=== PATIENT | male | born 1990 | race Caucasian/White ===

== ENCOUNTER 2019-04-01 11:05 | Inpatient (IN) | payer OTHER ==
[2019-04-01 11:32] VITALS: BMI 19.4
--- NOTE | 2019-04-01 13:17 | HP ---
COWS - Scale Resting Pulse: 0= [place] 80 or Below Sweatin= No chills or Flushing Restless Observation: 1= Difficult to Sit Still Pupil Size: 0= Normal to Room Light Bone or Joint Aches: 2= Severe Diffuse Aches Runny Nose/ Eye Tearin= Nasal Congestion GI Upset > 30mins: 0= None Tremor Observation: 0= None Yawning Observation: 0= None Anxiety or Irritability: 2=Irritable/Anxious Goose Flesh Skin: 0=Smooth Skin COWS Score: 6 CIWA Score - Admission Criteria OASAS Guidelines: Admission for Medically Managed Detox: Requires at least one of the followin. CIWA greater than 12 2. Seizures within the past 24 hours 3. Delirium tremens within the past 24 hours 4. Hallucinations within the past 24 hours 5. Acute intervention needed for co occurring medical disorder 6. Acute intervention needed for co occurring psychiatric disorder 7. Severe withdrawal that cannot be handled at a lower level of care (continued vomiting, continued diarrhea, abnormal vital signs) requiring intravenous medication and/or fluids 8. Admission ROS [facility] - HPI Chief Complaint: referred by [facility] Allergies/Adverse Reactions: Allergies Allergy/AdvReac Type Severity Reaction Status Date / Time No Known Allergies Allergy Verified 04/01/19 11:26 History of Present Illness: pt here requesting detox from heroin use , reports 10-20 bags heroin/ day IV , needles from exchange , denies sharing , denies abscess , + OD x 3 most recently 1 mo ago , Narcan by EMS , taken to [facility] . First age of use 22 IVD heroin , latest use 8 am today . cocaine - 1 bag/day iv since age 22 denies oxy \ fentanyl - admits to use denies other illicits or etoh tobacco : denies PMHX : denies PSHX : denies Psych : denies SHx : homeless , unemployed Exam Limitations: No Limitations - Ebola screening Have you traveled outside of the country in the last 21 days: No Have you had contact with anyone from an Ebola affected area: No Do you have a fever: No - Review of Systems Constitutional: No Symptoms Reported EENT: reports: No Symptoms Reported Respiratory: reports: No Symptoms reported Cardiac: reports: No Symptoms Reported GI: reports: No Symptoms Reported : reports: No Symptoms Reported Musculoskeletal: reports: See HPI Integumentary: reports: See HPI Neuro: reports: No Symptoms reported Endocrine: reports: No Symptoms Reported Psychiatric: reports: Orientated x3, Anxious Patient History - Smoking Cessation Smoking history: Never smoked - Substances abused Heroin Substance route: Injection Frequency: Daily Amount used: 10-20 bags Age of first use: 22 Date of last use: 04/01/19 Admission Physical Exam BHS - Vital Signs Vital Signs: Vital Signs - 24 hr 04/01/19 11:27 Temperature 98.6 F Pulse Rate 76 Respiratory 16 Rate Blood Pressure 111/67 - Physical General Appearance: Yes: Mild Distress, Anxious HEENTM: Yes: EOMI, Hearing grossly Normal, Normocephalic, Normal Voice Respiratory: Yes: Chest Non-Tender, Lungs Clear, Normal Breath Sounds, No Respiratory Distress, No Accessory Muscle Use Neck: Yes: No masses,lesions,Nodules, Trachea in good position Cardiology: Yes: Regular Rhythm, Regular Rate, S1, S2 Abdominal: Yes: Normal Bowel Sounds, Non Tender, Soft Back: Yes: Normal Inspection Musculoskeletal: Yes: full range of Motion, Gait Steady Extremities: Yes: Normal Range of Motion, Non-Tender Neurological: Yes: Fully Oriented, Alert, Motor Strength 5/5, Normal Mood/Affect Integumentary: Yes: Warm, Track [place] - Diagnostic (1) Opioid use with intoxication Current Visit: Yes Status: Acute (2) Cocaine use disorder Current Visit: Yes Status: Chronic Breathalyzer - Breathalyzer Breathalyzer: 0 Urine Drug Screen - Test Device Lot number: [id number] Expiration date: 11/24/20 - Control Is test valid?: Yes - Results Drug screen NEGATIVE: No Urine drug screen results: DAMASO-Cocaine, FEN-Fentanyl, MOP-Opiates, OXY-Oxycodone Inpatient Rehab Admission - Rehab Decision to Admit Inpatient rehab admission?: No
[2019-04-01] MEDS ORDERED: MAG HYDROX/AL HYDROX/SIMETH 30 ML UNIT-DOSE CUP PO PRN (13:25)
[2019-04-01] MEDS ORDERED: METHOCARBAMOL 500 MG TABLET PO PRN (13:25)
[2019-04-01] MEDS ORDERED: MAGNESIUM HYDROX 2400MG/30ML ORAL SUSPENSION 30 ML CUP PO PRN (13:25)
[2019-04-01] MEDS ORDERED: BISMUTH SUBSALICYLATE 262 MG/15 ML BTL PO PRN (13:25)
[2019-04-01] MEDS ORDERED: ACETAMINOPHEN 325 MG TABLET (FP) PO PRN ×2 (13:25)
[2019-04-01] MEDS ORDERED: MAGNESIUM CITRATE 300 ML BOTTLE PO PRN (13:25)
[2019-04-01] MEDS ORDERED: MENTHOL/PHENOL 1 EACH UD MM PRN (13:25)
[2019-04-01] MEDS ORDERED: IBUPROFEN 400 MG TABLET (FP) PO PRN (13:25)
[2019-04-01] MEDS ORDERED: cloNIDine HCL 0.1 MG TABLET PO PRN (13:28)
--- NOTE | 2019-04-01 15:01 | EKG ---
Test Reason : Blood Pressure : / mmHG Vent. Rate : 073 BPM Atrial Rate : 073 BPM P-R Int : 142 ms QRS Dur : 092 ms QT Int : 394 ms P-R-T Axes : 043 082 068 degrees QTc Int : 434 ms NORMAL SINUS RHYTHM NORMAL ECG NO PREVIOUS ECGS AVAILABLE Confirmed by MD Jose, Garland ([id number]) on 04/01/2019 3:01:14 PM Referred By: Confirmed By:Garland Garcia MD
[2019-04-01] MEDS: hydrOXYzine PAMOATE 25 MG CAPSULE (FP) PO PRN (15:10)
[2019-04-01] MEDS ORDERED: METHADONE HCL 10 MG TABLET (FOR DETOX USE ONLY) PO ONE (21:00)
[2019-04-01] MEDS: THIAMINE HCL 100 MG TABLET (FP) PO SCH (21:42)
[2019-04-02] MEDS ORDERED: METHADONE HCL 5 MG TABLET (FOR DETOX USE ONLY) ONE (08:54)
[2019-04-02] MEDS ORDERED: METHADONE HCL 10 MG TABLET (FOR DETOX USE ONLY) ONE (08:54)
[2019-04-02] MEDS ORDERED: METHADONE (DETOX) 20 MG, METHADONE (DETOX) 5 MG PO ONE (10:00)
[2019-04-02] MEDS: PRENATAL VITAMINS W/ FOLIC ACID TABLET (FP) PO SCH (10:12)
[2019-04-02 10:48] LABS: ALBUMIN 3.3 g/dl (3.4-5.0); BILIRUBIN,TOTAL 0.4 mg/dL (0.2-1); BLOOD UREA NITROGEN 8.4 mg/dL (7-18); CALCIUM 8.7 mg/dL (8.5-10.1); POTASSIUM 3.9 mmol/L (3.5-5.1); TOT PROT 7.7 g/dl (6.4-8.2)
--- NOTE | 2019-04-02 10:51 | PN ---
BHS COWS - Scale Resting Pulse: 0= [place] 80 or Below Sweatin= Chills/Flushing Restless Observation: 0= Sits Still Pupil Size: 1= Pupils >than Normal Bone or Joint Aches: 1= Mild Discomfort Runny Nose/ Eye Tearin= None GI Upset > 30mins: 1= Stomach Cramp Tremor Observation of Outstretched Hands: 1= Tremor [place], Not Seen Yawning Observation: 0= None Anxiety or Irritability: 2=Irritable/Anxious Goose Flesh Skin: 3=Piloerection COWS Score: 10 BHS Progress Note (SOAP) Subjective: 28 years old male admitted on 04/01/19 for opiate withdrawal sx management treated with methadone detox regimen resting on bed feeling tired prefers to stay in bed today Objective: 04/02/19 10:50 Vital Signs Temperature 96 F L 04/02/19 09:02 Pulse Rate 66 04/02/19 09:02 Respiratory Rate 20 04/02/19 09:02 Blood Pressure 96/58 L 04/02/19 09:02 O2 Sat by Pulse Oximetry (%) Laboratory Last Values Sodium 142 mmol/L (136-145) 04/02/19 08:15 Potassium 3.9 mmol/L (3.5-5.1) 04/02/19 08:15 Chloride 108 mmol/L (98-107) H 04/02/19 08:15 Carbon Dioxide 30 mmol/L (21-32) 04/02/19 08:15 Anion Gap 4 MMOL/L (8-16) L 04/02/19 08:15 BUN 8.4 mg/dL (7-18) 04/02/19 08:15 Creatinine 1.0 mg/dL (0.55-1.3) 04/02/19 08:15 Est GFR (CKD-EPI)AfAm 119.86 04/02/19 08:15 Est GFR (CKD-EPI)NonAf 103.41 04/02/19 08:15 Random Glucose 81 mg/dL (74-106) 04/02/19 08:15 Calcium 8.7 mg/dL (8.5-10.1) 04/02/19 08:15 Total Bilirubin 0.4 mg/dL (0.2-1) 04/02/19 08:15 AST 16 U/L (15-37) 04/02/19 08:15 ALT 18 U/L (13-61) 04/02/19 08:15 Alkaline Phosphatase 63 U/L (45-117) 04/02/19 08:15 Total Protein 7.7 g/dl (6.4-8.2) 04/02/19 08:15 Albumin 3.3 g/dl (3.4-5.0) L 04/02/19 08:15 lab noted Assessment: 04/02/19 10:51 opiate withdrawal sx Plan: continue methadone detox regimen
[2019-04-02 10:53] LABS: HEMATOCRIT 36.9 % (35.4-49); HEMOGLOBIN 12.1 GM/dL (11.7-16.9); MCH 29.6 pg (25.7-33.7); MCHC 32.9 g/dl (32.0-35.9); MEAN CELL VOLUME 89.9 fl (80-96); MEAN PLT VOLUME 8.6 fl (7.5-11.1); PLATELET COUNT 263 K/MM3 (134-434); RDW 13.9 % (11.9-15.9); WHITE BLOOD COUNT 5.8 K/mm3 (4.0-10.0)
[2019-04-02] MEDS: hydrOXYzine PAMOATE 25 MG CAPSULE (FP) PO PRN (22:11)
[2019-04-02] MEDS: THIAMINE HCL 100 MG TABLET (FP) PO SCH (22:11)
[2019-04-03] MEDS ORDERED: METHADONE HCL 10 MG TABLET (FOR DETOX USE ONLY) PO ONE (10:00)
[2019-04-03] MEDS: PRENATAL VITAMINS W/ FOLIC ACID TABLET (FP) PO SCH (10:03)
--- NOTE | 2019-04-03 11:32 | PN ---
BHS COWS - Scale Resting Pulse: 1= [place] 81-100 Sweatin= Chills/Flushing Restless Observation: 0= Sits Still Pupil Size: 1= Pupils >than Normal Bone or Joint Aches: 1= Mild Discomfort Runny Nose/ Eye Tearin= Nasal Congestion GI Upset > 30mins: 0= None Tremor Observation of Outstretched Hands: 1= Tremor [place], Not Seen Yawning Observation: 1= 1-2x During Session Anxiety or Irritability: 2=Irritable/Anxious Goose Flesh Skin: 0=Smooth Skin COWS Score: 9 BHS Progress Note (SOAP) Subjective: 28 years old male admitted on 04/01/19 for opiate withdrawal sx management treated with methadone detox regimen discuss medication assisted treatment program citrus picker narcan from pharmacy Objective: 04/03/19 11:34 Vital Signs Temperature 96 F L 04/03/19 09:05 Pulse Rate 87 04/03/19 09:05 Respiratory Rate 20 04/03/19 09:05 Blood Pressure 118/77 04/03/19 09:05 O2 Sat by Pulse Oximetry (%) Laboratory Last Values WBC 5.8 K/mm3 (4.0-10.0) 04/02/19 08:15 RBC 4.10 M/mm3 (4.00-5.60) 04/02/19 08:15 Hgb 12.1 GM/dL (11.7-16.9) 04/02/19 08:15 Hct 36.9 % (35.4-49) 04/02/19 08:15 MCV 89.9 fl (80-96) 04/02/19 08:15 MCH 29.6 pg (25.7-33.7) 04/02/19 08:15 MCHC 32.9 g/dl (32.0-35.9) 04/02/19 08:15 RDW 13.9 % (11.9-15.9) 04/02/19 08:15 Plt Count 263 K/MM3 (134-434) 04/02/19 08:15 MPV 8.6 fl (7.5-11.1) 04/02/19 08:15 Sodium 142 mmol/L (136-145) 04/02/19 08:15 Potassium 3.9 mmol/L (3.5-5.1) 04/02/19 08:15 Chloride 108 mmol/L (98-107) H 04/02/19 08:15 Carbon Dioxide 30 mmol/L (21-32) 04/02/19 08:15 Anion Gap 4 MMOL/L (8-16) L 04/02/19 08:15 BUN 8.4 mg/dL (7-18) 04/02/19 08:15 Creatinine 1.0 mg/dL (0.55-1.3) 04/02/19 08:15 Est GFR (CKD-EPI)AfAm 119.86 04/02/19 08:15 Est GFR (CKD-EPI)NonAf 103.41 04/02/19 08:15 Random Glucose 81 mg/dL (74-106) 04/02/19 08:15 Calcium 8.7 mg/dL (8.5-10.1) 04/02/19 08:15 Total Bilirubin 0.4 mg/dL (0.2-1) 04/02/19 08:15 AST 16 U/L (15-37) 04/02/19 08:15 ALT 18 U/L (13-61) 04/02/19 08:15 Alkaline Phosphatase 63 U/L (45-117) 04/02/19 08:15 Total Protein 7.7 g/dl (6.4-8.2) 04/02/19 08:15 Albumin 3.3 g/dl (3.4-5.0) L 04/02/19 08:15 RPR Titer Nonreactive (NONREACTIVE) 04/02/19 08:15 lab noted Assessment: 04/03/19 11:34 opiate withdrawal sx Plan: continue methadone detox regimen
[2019-04-03] MEDS: hydrOXYzine PAMOATE 25 MG CAPSULE (FP) PO PRN (22:09)
[2019-04-03] MEDS: THIAMINE HCL 100 MG TABLET (FP) PO SCH (22:09)
[2019-04-03] MEDS: MELATONIN 5 MG TABLETS PO PRN (22:09)
[2019-04-04] MEDS ORDERED: METHADONE HCL 5 MG TABLET (FOR DETOX USE ONLY) ONE (09:14)
[2019-04-04] MEDS ORDERED: METHADONE HCL 10 MG TABLET (FOR DETOX USE ONLY) ONE (09:14)
[2019-04-04] MEDS: PRENATAL VITAMINS W/ FOLIC ACID TABLET (FP) PO SCH (09:27)
[2019-04-04] MEDS ORDERED: METHADONE (DETOX) 10 MG, METHADONE (DETOX) 5 MG PO ONE (10:00)
--- NOTE | 2019-04-04 13:32 | PN ---
BHS COWS - Scale Resting Pulse: 0= [place] 80 or Below Sweatin= No chills or Flushing Restless Observation: 0= Sits Still Pupil Size: 1= Pupils >than Normal Bone or Joint Aches: 1= Mild Discomfort Runny Nose/ Eye Tearin= Runny Nose/Eyes GI Upset > 30mins: 1= Stomach Cramp Tremor Observation of Outstretched Hands: 1= Tremor [place], Not Seen Yawning Observation: 1= 1-2x During Session Anxiety or Irritability: 1=Feels Anxious/Irritable Goose Flesh Skin: 0=Smooth Skin COWS Score: 8 BHS Progress Note (SOAP) Subjective: alert,irritable,anxious,interrupted sleep,pain in the body Objective: 04/04/19 13:40 Vital Signs Temperature 98.7 F 04/04/19 13:19 Pulse Rate 79 04/04/19 13:19 Respiratory Rate 18 04/04/19 13:19 Blood Pressure 120/71 04/04/19 13:19 O2 Sat by Pulse Oximetry (%) 04/04/19 13:40 Laboratory Last Values WBC 5.8 K/mm3 (4.0-10.0) 04/02/19 08:15 RBC 4.10 M/mm3 (4.00-5.60) 04/02/19 08:15 Hgb 12.1 GM/dL (11.7-16.9) 04/02/19 08:15 Hct 36.9 % (35.4-49) 04/02/19 08:15 MCV 89.9 fl (80-96) 04/02/19 08:15 MCH 29.6 pg (25.7-33.7) 04/02/19 08:15 MCHC 32.9 g/dl (32.0-35.9) 04/02/19 08:15 RDW 13.9 % (11.9-15.9) 04/02/19 08:15 Plt Count 263 K/MM3 (134-434) 04/02/19 08:15 MPV 8.6 fl (7.5-11.1) 04/02/19 08:15 Sodium 142 mmol/L (136-145) 04/02/19 08:15 Potassium 3.9 mmol/L (3.5-5.1) 04/02/19 08:15 Chloride 108 mmol/L (98-107) H 04/02/19 08:15 Carbon Dioxide 30 mmol/L (21-32) 04/02/19 08:15 Anion Gap 4 MMOL/L (8-16) L 04/02/19 08:15 BUN 8.4 mg/dL (7-18) 04/02/19 08:15 Creatinine 1.0 mg/dL (0.55-1.3) 04/02/19 08:15 Est GFR (CKD-EPI)AfAm 119.86 04/02/19 08:15 Est GFR (CKD-EPI)NonAf 103.41 04/02/19 08:15 Random Glucose 81 mg/dL (74-106) 04/02/19 08:15 Calcium 8.7 mg/dL (8.5-10.1) 04/02/19 08:15 Total Bilirubin 0.4 mg/dL (0.2-1) 04/02/19 08:15 AST 16 U/L (15-37) 04/02/19 08:15 ALT 18 U/L (13-61) 04/02/19 08:15 Alkaline Phosphatase 63 U/L (45-117) 04/02/19 08:15 Total Protein 7.7 g/dl (6.4-8.2) 04/02/19 08:15 Albumin 3.3 g/dl (3.4-5.0) L 04/02/19 08:15 RPR Titer Nonreactive (NONREACTIVE) 04/02/19 08:15 Assessment: 04/04/19 13:40 withdrawal symptom Plan: continue detox,methadone regimen
[2019-04-04] MEDS: THIAMINE HCL 100 MG TABLET (FP) PO SCH (21:32)
[2019-04-04] MEDS: hydrOXYzine PAMOATE 25 MG CAPSULE (FP) PO PRN (21:32)
[2019-04-04] MEDS: MELATONIN 5 MG TABLETS PO PRN (21:32)
[2019-04-05] MEDS ORDERED: METHADONE HCL 10 MG TABLET (FOR DETOX USE ONLY) PO ONE (10:00)
[2019-04-05] MEDS: PRENATAL VITAMINS W/ FOLIC ACID TABLET (FP) PO SCH (10:11)
--- NOTE | 2019-04-05 13:19 | PN ---
BHS COWS - Scale Resting Pulse: 0= [place] 80 or Below Sweatin= Chills/Flushing Restless Observation: 0= Sits Still Pupil Size: 0= Normal to Room Light Bone or Joint Aches: 0= None Runny Nose/ Eye Tearin= None GI Upset > 30mins: 0= None Tremor Observation of Outstretched Hands: 0= None Yawning Observation: 1= 1-2x During Session Anxiety or Irritability: 2=Irritable/Anxious Goose Flesh Skin: 0=Smooth Skin COWS Score: 4 BHS Progress Note (SOAP) Subjective: c/o sweats and anxiety. Objective: 04/05/19 13:18 Vital Signs 04/05/19 04/05/19 06:14 09:36 Temperature 97.7 F 97.6 F Pulse Rate 70 80 Respiratory 16 18 Rate Blood Pressure 102/56 L 130/68 Lab Results WBC 5.8 K/mm3 (4.0-10.0) 04/02/19 08:15 RBC 4.10 M/mm3 (4.00-5.60) 04/02/19 08:15 Hgb 12.1 GM/dL (11.7-16.9) 04/02/19 08:15 Hct 36.9 % (35.4-49) 04/02/19 08:15 MCV 89.9 fl (80-96) 04/02/19 08:15 MCHC 32.9 g/dl (32.0-35.9) 04/02/19 08:15 RDW 13.9 % (11.9-15.9) 04/02/19 08:15 Plt Count 263 K/MM3 (134-434) 04/02/19 08:15 Sodium 142 mmol/L (136-145) 04/02/19 08:15 Potassium 3.9 mmol/L (3.5-5.1) 04/02/19 08:15 Chloride 108 mmol/L (98-107) H 04/02/19 08:15 Carbon Dioxide 30 mmol/L (21-32) 04/02/19 08:15 Anion Gap 4 MMOL/L (8-16) L 04/02/19 08:15 BUN 8.4 mg/dL (7-18) 04/02/19 08:15 Creatinine 1.0 mg/dL (0.55-1.3) 04/02/19 08:15 Random Glucose 81 mg/dL (74-106) 04/02/19 08:15 Calcium 8.7 mg/dL (8.5-10.1) 04/02/19 08:15 Labs noted. Assessment: 04/05/19 13:19 AOX3, in no acute respiratory distress. Full rom, ambulating in the unit. Mild Withdrawal symptoms. For d/c tomorrow. Plan: continue detox. D/C in AM.
[2019-04-05] MEDS: THIAMINE HCL 100 MG TABLET (FP) PO SCH (22:26)
[2019-04-05] MEDS: MELATONIN 5 MG TABLETS PO PRN (22:26)
[2019-04-06] MEDS ORDERED: METHADONE HCL 5 MG TABLET (FOR DETOX USE ONLY) PO ONE (06:00)
[2019-04-06 09:14] VITALS: BP 128/73; PULSE 88; TEMP 98.8
--- NOTE | 2019-04-06 13:37 | DS ---
[facility] Detox Discharge Summary Admission Date: 04/01/19 Discharge Date: 04/06/19 - History Present History: Opioid Dependence Additional Comments: 28 years old male admitted on 04/01/19 for opiate withdrawal sx management treated with methadone detox regimen patient is alert oriented x 3 cardiac S1S2 regular rate rhythm respiratory clear lung bilaterally on auscultation abdomen soft no rebound tenderness - Physical Exam Results Vital Signs: Vital Signs Temperature 98.8 F 04/06/19 09:13 Pulse Rate 88 04/06/19 09:13 Respiratory Rate 18 04/06/19 09:13 Blood Pressure 128/73 04/06/19 09:13 O2 Sat by Pulse Oximetry (%) Pertinent Admission Physical Exam Findings: opiate withdrawal sx Laboratory Last Values WBC 5.8 K/mm3 (4.0-10.0) 04/02/19 08:15 RBC 4.10 M/mm3 (4.00-5.60) 04/02/19 08:15 Hgb 12.1 GM/dL (11.7-16.9) 04/02/19 08:15 Hct 36.9 % (35.4-49) 04/02/19 08:15 MCV 89.9 fl (80-96) 04/02/19 08:15 MCH 29.6 pg (25.7-33.7) 04/02/19 08:15 MCHC 32.9 g/dl (32.0-35.9) 04/02/19 08:15 RDW 13.9 % (11.9-15.9) 04/02/19 08:15 Plt Count 263 K/MM3 (134-434) 04/02/19 08:15 MPV 8.6 fl (7.5-11.1) 04/02/19 08:15 Sodium 142 mmol/L (136-145) 04/02/19 08:15 Potassium 3.9 mmol/L (3.5-5.1) 04/02/19 08:15 Chloride 108 mmol/L (98-107) H 04/02/19 08:15 Carbon Dioxide 30 mmol/L (21-32) 04/02/19 08:15 Anion Gap 4 MMOL/L (8-16) L 04/02/19 08:15 BUN 8.4 mg/dL (7-18) 04/02/19 08:15 Creatinine 1.0 mg/dL (0.55-1.3) 04/02/19 08:15 Est GFR (CKD-EPI)AfAm 119.86 04/02/19 08:15 Est GFR (CKD-EPI)NonAf 103.41 04/02/19 08:15 Random Glucose 81 mg/dL (74-106) 04/02/19 08:15 Calcium 8.7 mg/dL (8.5-10.1) 04/02/19 08:15 Total Bilirubin 0.4 mg/dL (0.2-1) 04/02/19 08:15 AST 16 U/L (15-37) 04/02/19 08:15 ALT 18 U/L (13-61) 04/02/19 08:15 Alkaline Phosphatase 63 U/L (45-117) 04/02/19 08:15 Total Protein 7.7 g/dl (6.4-8.2) 04/02/19 08:15 Albumin 3.3 g/dl (3.4-5.0) L 04/02/19 08:15 RPR Titer Nonreactive (NONREACTIVE) 04/02/19 08:15 lab noted - Treatment Hospital Course: Detox Protocol Followed, Detoxed Safely, Responded well, Discharged Condition Good, Rehab Referral Accepted Patient has Accepted a Rehab Referral to: community support approach - Medication Discharge Medications: Ambulatory Orders Naloxone HCl [Narcan] 4 mg NS ASDIR PRN #1 spray 04/03/19 - Diagnosis (1) Opioid dependence, uncomplicated Status: Acute - AMA Did Patient Leave Against Medical Advice: No COWS (PN) - Opiate Withdrawal Resting Pulse: 1= [place] 81-100 Sweatin= Chills/Flushing Restless Observation: 0= Sits Still Pupil Size: 0= Normal to Room Light Bone or Joint Aches: 0= None Runny Nose/ Eye Tearin= None GI Upset > 30mins: 0= None Tremor Observation of Outstretched Hands: 0= None Yawning Observation: 0= None Anxiety or Irritability: 0= None Goose Flesh Skin: 0=Smooth Skin COWS Score: 2
== END 2019-04-06 10:51 | disposition home or self-care (01) | DRG 773 ==
LOC: YASAS 11:05 → Y3N 14:06
PROVIDERS: ADMIT Allergy & Immunology; ATTEND Allergy & Immunology
PROC: HZ2ZZZZ Detoxification Services for Substance Abuse Treatment (ICD-10-PCS; principal; 2019-04-01)
DX: F11.23 Opioid dependence with withdrawal (principal); F14.10 Cocaine abuse, uncomplicated
CPT/HCPCS: 36415; 80053; 85027; 86593; 93005; 93010